=== PATIENT | male | born 1950 | race Caucasian/White ===

== ENCOUNTER → 2016-10-08 | Outpatient (CLI) | payer BC ==
[~2016-10-08] MED LIST: ALL300 PO; ASPEC81 PO; BNC/20125 PO; CETI10TA84 PO; DOCU100C31 PO; EPP3/2 IM; ERYTHROMYCIN OINT OPR; FLNIN NAE; GLC/500 PO; MULT-506 PO; RXC5 PO; SNK PO; TYLOTC500 PO
[2016-10-08 12:10] LABS: BASO % 0.6 %; BASO ABS # 0.06 K/uL (0-0.2); COMPLETE YES; EOS % 3.7 %; HEMATOCRIT 45.6 % (42-52); IG% 0.3 %; LYMPH % 22.3 %; MEAN CELL VOLUME 94.4 fL (80-100); MEAN CORPUSCULAR HEMOGLOBIN 32.3 pg (25-34); MEAN CORPUSCULAR HGB CONC 34.2 g/dl (32-36); MEAN PLATELET VOLUME 11.4 fL (7.4-10.4); MONO % 15.1 %; PLATELET COUNT 231 K/uL (130-400); RED BLOOD COUNT 4.83 M/uL (4.7-6.1)
[2016-10-08 12:27] LABS: ALKALINE PHOSPHATASE 75 U/L (45-117); ALT/SGPT 60 U/L (12-78); AST/SGOT 34 U/L (15-37); BLOOD UREA NITROGEN 15 mg/dl (7-18); BUN/CREATININE RATIO 15.1 (10-20); CALCIUM 9.5 mg/dl (8.5-10.1); CARBON DIOXIDE 31 mmol/L (21-32); CHLORIDE 103 mmol/L (98-107); CHOLESTEROL 135 mg/dl (0-200); CHOLESTEROL/HDL RATIO 4.8; GLUCOSE 183 mg/dl (70-99); HDL CHOLESTEROL 28 mg/dl; LDL CHOLESTEROL CALCULATED 70 mg/dl; POTASSIUM 4.1 mmol/L (3.5-5.1); SODIUM 139 mmol/L (136-145); TRIGLYCERIDES 183 mg/dl (0-150); VERY LOW DENSITY LIPOPROT CALC 37 mg/dl
[2016-10-08 12:28] LABS: ESTIMATED AVERAGE GLUCOSE 171 mg/dl; HA1C FLAG Normal (Normal)
[2016-10-08 13:51] LABS: RATIO 27.2 mcg/mg (0-30.0)
== END | disposition home or self-care (01) ==
LOC: C.LAB1850 10:22
PROVIDERS: ATTEND Internal Medicine Pulmonary Disease
DX: Z00.00 Encounter for general adult medical examination without abnormal findings (principal); I10 Essential (primary) hypertension; R73.9 Hyperglycemia, unspecified

== ENCOUNTER → 2017-06-30 | Outpatient (CLI) | payer BC | END | disposition home or self-care (01) | LOC: C.LAB1850 16:18 | PROVIDERS: ATTEND Physician Assistant Medical | DX: T14.8XXA Other injury of unspecified body region, initial encounter (principal); W57.XXXA Bitten or stung by nonvenomous insect and other nonvenomous arthropods, initial encounter ==

== ENCOUNTER → 2017-09-23 | Outpatient (CLI) | payer BC ==
[~2017-09-23] MED LIST changes: +ALLO300T2 PO; -ASPEC81 PO; +ASPI-320 PO; +ASPI81TA28 PO; +CHOL1TAB PO; +CLOT10TR2 MT; +DULA1INJ SC; +FLUT50SP45; +METF1000 PO; +PANT40TA PO
[2017-09-23 12:23] LABS: ALBUMIN 3.8 gm/dl (3.4-5.0); ALT/SGPT 37 U/L (12-78); AST/SGOT 26 U/L (15-37); BLOOD UREA NITROGEN 25 mg/dl (7-18); CALCIUM 9.1 mg/dl (8.5-10.1); CARBON DIOXIDE 30 mmol/L (21-32); CREATININE 1.06 mg/dl (0.60-1.40); GLUCOSE 104 mg/dl (70-99); POTASSIUM 3.7 mmol/L (3.5-5.1); SODIUM 139 mmol/L (136-145)
[2017-09-23 12:25] LABS: ALKALINE PHOSPHATASE 56 U/L (45-117); TOTAL PROTEIN 7.8 gm/dl (6.4-8.2)
[2017-09-23 12:36] LABS: HEMOGLOBIN A1C 5.7 % (4.5-5.6)
== END | disposition home or self-care (01) ==
LOC: C.LAB1850 11:00
PROVIDERS: ATTEND Internal Medicine Endocrinology, Diabetes & Metabolism
DX: I10 Essential (primary) hypertension (principal); M10.9 Gout, unspecified; E11.65 Type 2 diabetes mellitus with hyperglycemia; J30.9 Allergic rhinitis, unspecified

== ENCOUNTER → 2017-09-24 | Outpatient (CLI) | payer BC ==
[2017-09-24 16:41] LABS: MEAN PLATELET VOLUME 10.7 fL (7.4-10.4); PLATELET COUNT 237 K/uL (130-400)
[2017-09-24 17:01] LABS: HEMATOCRIT 41.8 % (42-52); HEMOGLOBIN 14.2 g/dL (14.0-18.0); MEAN CELL VOLUME 93.9 fL (80-100); MEAN CORPUSCULAR HEMOGLOBIN 31.9 pg (25-34); RED CELL DISTRIBUTION WIDTH CV 12.8 % (11.5-14.5); RED CELL DISTRIBUTION WIDTH SD 43.7 fL (36.4-46.3); WHITE BLOOD COUNT 9.46 K/uL (4.8-10.8)
[2017-09-24 17:04] LABS: BASO % 0.3 %; BASO ABS # 0.03 K/uL (0-0.2); EOS ABS # 0.47 K/uL (0-0.5); IG# 0.03 K/uL (0.00-0.02); LYMPH % 27.9 %; LYMPH ABS # 2.64 K/uL (1.2-3.4); MONO % 13.6 %; MONO ABS # 1.29 K/uL (0.11-0.59); NEUT % 52.9 %
== END | disposition home or self-care (01) ==
LOC: C.LAB1850 15:48
PROVIDERS: ATTEND Physician Assistant Medical
DX: K92.0 Hematemesis (principal)

== ENCOUNTER 2017-10-01 16:52 | Emergency (ER) | payer BC ==
[~2017-10-01] VITALS: Ht 170.2 cm; Wt 97.7 kg
[2017-10-01 16:57] VITALS: TEMP 36.8; Ht 170.2 cm; Wt 97.7 kg
[2017-10-01 18:13] LABS: BASO % 0.4 %; BASO ABS # 0.04 K/uL (0-0.2); EOS % 3.2 %; EOS ABS # 0.29 K/uL (0-0.5); HEMATOCRIT 44.7 % (42-52); HEMOGLOBIN 15.5 g/dL (14.0-18.0); IG# 0.04 K/uL (0.00-0.02); LYMPH % 23.5 %; MEAN CELL VOLUME 92.9 fL (80-100); MEAN CORPUSCULAR HEMOGLOBIN 32.2 pg (25-34); MEAN CORPUSCULAR HGB CONC 34.7 g/dl (32-36); MEAN PLATELET VOLUME 10.4 fL (7.4-10.4); MONO % 16.3 %; MONO ABS # 1.46 K/uL (0.11-0.59); NEUT % 56.2 %; PLATELET COUNT 248 K/uL (130-400); RED CELL DISTRIBUTION WIDTH CV 12.8 % (11.5-14.5); RED CELL DISTRIBUTION WIDTH SD 43.6 fL (36.4-46.3); WHITE BLOOD COUNT 8.93 K/uL (4.8-10.8)
[2017-10-01 18:35] LABS: ALBUMIN 4.3 gm/dl (3.4-5.0); CALCIUM 9.3 mg/dl (8.5-10.1); CREATININE 1.21 mg/dl (0.60-1.40); POTASSIUM 3.6 mmol/L (3.5-5.1)
[2017-10-01 18:36] LABS: PTT PATIENT 28.9 SECONDS (21.0-31.0)
[2017-10-01 18:38] LABS: TOTAL PROTEIN 8.7 gm/dl (6.4-8.2)
[2017-10-01] MEDS ORDERED: LIDOCAINE/EPINEPHRINE 1% 20 ML VIAL INFIL STA (19:29)
[2017-10-01] MEDS ORDERED: SILVER NITR/POTASSIUM NITRATE APPLICATOR ONE (21:08)
--- NOTE | 2017-10-01 22:02 | EMERGENCY ROOM VISIT NOTE ---
History First contact with patient: 17:01 Chief Complaint: BLEEDING Stated Complaint: GUMS BLEEDING Nursing Triage Summary: Patient presents ambulatory to triage with c/o gums have been bleeding since 09/30/17 around noon Aspirin 81mg daily - states he did not take this today Denies other injury History of Present Illness The patient is a 67 year old male who presents to the Emergency Room via private vehicle accompanied by female with complaints of "gums bleeding". The patient states that yesterday around noon time he began with spontaneous bleeding from the gumline at the space between the right second and third molar. He states that he did have popcorn 2 nights ago and then began with the bleeding around noontime the next day and does not believe that this is the cause. He denies any pain. He takes 81 mg aspirin daily but did not take today because the bleeding. No other blood thinners. He denies any other underlying bleeding disorder. The only other important note he states is that last week he took an NSAID for his knee and vomited blood. He has an EGD scheduled for Thursday. He states that he was seen by his dentist yesterday who evaluated his urine he states that he also had a CBC done last week and it was normal. He again denies any trauma or injury. He has tried rinsing the mouth with cold water without relief. Review of Systems A complete 6-point Review of Systems was discussed with the patient, with pertinent positives and negatives listed in the History of Present Illness. All remaining Review of Systems questions can be considered negative unless otherwise specified. Past Medical/Surgical History Surgical Problems: (1) Post-operative state Social History Smoking Status: Former Smoker Marital Status: Housing Status: lives with significant other Current/Historical Medications Scheduled Allopurinol (Zyloprim), 300 MG PO DAILY Aspirin (Aspirin Ec), 81 MG PO DAILY Cetirizine (Zyrtec), 10 MG PO HS Cholecalciferol (Vitamin D-3), 800 UNITS PO DAILY Dulaglutide (Trulicity), 0.75 MG SC WK Epinephrine (Epipen), 0.3 MG IM UD Fluticasone Propionate (Nasal) (Allergy Nasal [place] 24 Ho), 1 SPRAY NA BID Metformin Hcl (Glucophage), 1,000 MG PO BID Multivitamin (Multivitamin), 1 TAB PO QAM Olmesartan/Hctz (Benicar Hct 20/12.5), 1 TAB PO QAM Pantoprazole Sodium (Protonix), 40 MG PO DAILY Scheduled PRN Clotrimazole (Mycelex), 10 MG MT for SORE THROAT Physical Exam Vital Signs Date Time Temp Pulse Resp B/P (MAP) Pulse Ox O2 Delivery O2 Flow Rate FiO2 10/01/17 22:11 75 18 174/98 98 10/01/17 20:51 69 18 179/106 97 Room Air 10/01/17 18:36 69 18 159/97 98 Room Air 10/01/17 16:57 36.8 76 16 186/102 96 Room Air Physical Exam VITAL SIGNS - Vital signs and nursing notes were reviewed. Stable. Hypertensive. GENERAL -67-year-old male appearing his stated age who is in no acute distress. Communicates well with provider and answers questions appropriately. SKIN - Without rashes. No meningeal or petechial rash. HEAD - NC/AT. No lo signs or raccoon's eyes. EYES - PERRL with EOMI bilaterally. Sclera anicteric. Palpebral conjunctiva pink and moist with no injection noted. No hyphema. EARS - No deformities of external structures noted on gross examination bilaterally. No hemotympanum. External auditory canals without discharge or otorrhea. Tympanic membranes pearly velez without retraction or bulging. No fluid or purulent material visualized behind the TM. Handle of malleus, umbo, cone of light, pars tensa/flaccid all easily visualized. NOSE - Midline and without cyanosis. No epistaxis or purulent drainage noted. Septum midline without deviation or septal hematoma noted. MOUTH/OROPHARYNX - Without perioral cyanosis. Buccal mucosa pink and moist and without leukoplakia. Tongue midline with equal elevation of palate bilaterally. No tonsillar hypertrophy, erythema, or exudates noted. Between the second and third molar of the posterior inferior right dentition there is a small trickle of blood. No hemorrhage. No evidence of trauma. Fair dentition noted. Medical Decision & Procedures Laboratory Results 10/01/17 17:55 Red Blood Count 4.81, Mean Corpuscular Volume 92.9, Mean Corpuscular Hemoglobin 32.2, Mean Corpuscular Hemoglobin Concent 34.7, Mean Platelet Volume 10.4, Neutrophils (%) (Auto) 56.2, Lymphocytes (%) (Auto) 23.5, Monocytes (%) (Auto) 16.3, Eosinophils (%) (Auto) 3.2, Basophils (%) (Auto) 0.4, Neutrophils # (Auto ) 5.00, Lymphocytes # (Auto) 2.10, Monocytes # (Auto) 1.46, Eosinophils # (Auto ) 0.29, Basophils # (Auto) 0.04 10/01/17 17:55 Test 10/01/17 17:55 White Blood Count 8.93 K/uL (4.8-10.8) Red Blood Count 4.81 M/uL (4.7-6.1) Hemoglobin 15.5 g/dL (14.0-18.0) Hematocrit 44.7 % (42-52) Mean Corpuscular Volume 92.9 fL (80-100) Mean Corpuscular Hemoglobin 32.2 pg (25-34) Mean Corpuscular Hemoglobin Concent 34.7 g/dl (32-36) Platelet Count 248 K/uL (130-400) Mean Platelet Volume 10.4 fL (7.4-10.4) Neutrophils (%) (Auto) 56.2 % Lymphocytes (%) (Auto) 23.5 % Monocytes (%) (Auto) 16.3 % Eosinophils (%) (Auto) 3.2 % Basophils (%) (Auto) 0.4 % Neutrophils # (Auto) 5.00 K/uL (1.4-6.5) Lymphocytes # (Auto) 2.10 K/uL (1.2-3.4) Monocytes # (Auto) 1.46 K/uL (0.11-0.59) Eosinophils # (Auto) 0.29 K/uL (0-0.5) Basophils # (Auto) 0.04 K/uL (0-0.2) RDW Standard Deviation 43.6 fL (36.4-46.3) RDW Coefficient of Variation 12.8 % (11.5-14.5) Immature Granulocyte % (Auto) 0.4 % Immature Granulocyte # (Auto) 0.04 K/uL (0.00-0.02) Prothrombin Time 10.8 SECONDS (9.0-12.0) Prothromb Time International Ratio 1.0 (0.9-1.1) Activated Partial Thromboplast Time 28.9 SECONDS (21.0-31.0) Partial Thromboplastin Ratio 1.1 Anion Gap 3.0 mmol/L (3-11) Est Creatinine Clear Calc Drug Dose 64.2 ml/min Estimated GFR () 70.4 Estimated GFR (Non- 60.7 BUN/Creatinine Ratio 14.3 (10-20) Calcium Level 9.3 mg/dl (8.5-10.1) Total Bilirubin 0.8 mg/dl (0.2-1) Aspartate Amino Transf (AST/SGOT) 26 U/L (15-37) Alanine Aminotransferase (ALT/SGPT) 39 U/L (12-78) Alkaline Phosphatase 66 U/L (45-117) Total Protein 8.7 gm/dl (6.4-8.2) Albumin 4.3 gm/dl (3.4-5.0) Globulin 4.4 gm/dl (2.5-4.0) Albumin/Globulin Ratio 1.0 (0.9-2) Medical Decision Patient was seen and evaluated as above in room D3. Review was performed of nursing notes and vital signs. After obtaining a thorough history and physical examination the above work up was performed. I did elect to obtain baseline labs because of his presentation. No underlying normality with the CBC, coags or metabolic panel that is emergent. I did attempt cold water rinses, and teabags placed in the region. I then discussed this with the attending physician and subsequently spoke with the on-call oral maxillofacial surgeon, Dr. Hernandez, and it was recommended that I infiltrate the region with 1% lidocaine with epinephrine, packed the region with gauze for 10 minutes, and apply Surgicel in that order in case of persistent bleeding. He requested that I call him back if this did not achieve hemostasis. I then obtain consent, and infiltrated 4 cc of 1% buffered lidocaine with epinephrine into the gumline. This did help slow the bleeding some but it persisted. I then packed the region with gauze. He was observed for 15 minutes. It persisted. I then remove the gauze and placed a an entire layer of Surgicel around this and packed the region. He was then observed for 20 minutes. This persisted. I then called the oral maxillofacial surgeon, Dr. Hernandez again and he came to evaluate the patient. He was able to adequately achieve hemostasis. Patient is to call his office tomorrow shortly after 8 AM to inform him upon his status. Patient was observed here for greater than half hour after Dr. Hernandez was able to achieve hemostasis and there was no rebleed. Patient appears stable for outpatient management. He was educated upon worrisome symptoms which to return. He also was informed that he has elevated blood pressure here and is to follow up with family doctor. The patient was educated upon management , had questions answered prior to discharge, and was discharged home in good condition. Case was discussed with the attending physician. I attest that I have personally reviewed the patient medication list. I attest that I have reviewed the patient's blood pressure and it was found to be elevated, he is to follow up with family doctor. In the evaluation and treatment of this patient the following differential diagnoses were entertained: dental trauma, malignancy, bleeding disorder, amoung others. Impression Primary Impression: Gums, bleeding Departure Information Dispostion Home / Self-Care Condition GOOD Referrals Jeremiah Camacho M.D. (PCP) Ray Hernandez D.D.S. Patient Instructions My [facility] Additional Instructions You were seen in the emergency department for gum bleeding. At this time I recommend follow-up with Dr. Hernandez by calling his office tomorrow morning at 8 AM and if it is still bleeding he wants to see you. Please return with any new/concerning symptoms.
[2017-10-01 22:11] VITALS: BP 174/98; PULSE 75; O2SAT 98
--- NOTE | 2017-10-01 23:06 | CONSULTATION REPORT ---
DATE OF CONSULTATION: 10/01/2017 CHIEF COMPLAINT: Bleeding from the gums. HISTORY OF PRESENT ILLNESS: Mr. Castaneda is a 67-year-old man with about a day and a half history of spontaneous bleeding from the right gum. He has carefully reviewed all the foods he has eaten and did note that he had some popcorn about the night prior to the starting of this bleeding but cannot directly relate any oral trauma. He has not had any dental or oral surgical procedures and in general, he has been in good health, but it is interesting to note that he has upper GI scheduled this coming week because he did have one episode of some emesis with mild blood within it. I will defer you to his ER history and physical, but he is in generally good health and he has been on an 81 mg aspirin and meloxicam up until recently. These were recently stopped in preparation for his upper GI. His initial evaluation here in the ER was completed and it included labs. He has a normal platelet count and a normal coag profile, a normal white count and a normal hemoglobin. On examination, he is at the bedside with no acute distress but is actively spitting out blood into a cup. There is no swelling in his neck. There is no facial ecchymosis. No signs of trauma. Dentition is in good repair, but there is active moderately brisk bleeding coming from the gum tissue in the area between the mandibular right first and second molars (#30 and 31). I gave him some additional 1% lidocaine with epinephrine as a local infiltration right in that area which slowed the bleeding to a very slow ooze and then I used silver nitrate to further cauterize that with a resulting good hemostasis. I personally observed it for 5-10 minutes with no increased bleeding and discussed with the ER staff observing him for a bit longer and then discharging him to home. If there is no resumption of the bleeding, I will ask him to call me in the office in the morning with the status report and then we will plan appropriate followup as needed from there.
== END 2017-10-01 22:08 | disposition home or self-care (01) ==
LOC: C.EDB 16:53 → C.EDD 22:08
DX: K06.8 Other specified disorders of gingiva and edentulous alveolar ridge (principal); Z87.891 Personal history of nicotine dependence; Z79.82 Long term (current) use of aspirin; Z79.84 Long term (current) use of oral hypoglycemic drugs; Z79.899 Other long term (current) drug therapy

== ENCOUNTER → 2017-10-06 | Day surgery (SDC) | payer BC ==
[2017-10-01 10:09] VITALS: Ht 170.2 cm; Wt 95.5 kg
[~2017-10-06] VITALS: Ht 170.2 cm; Wt 95.5 kg
[~2017-10-06] MED LIST changes: -ALL300 PO; -ASPI-320 PO; -DOCU100C31 PO; -ERYTHROMYCIN OINT OPR; -FLNIN NAE; -GLC/500 PO; +LIDOCAINE HCL 2% 2 ML VIAL (20MG/ML) ONE; +PROPOFOL IV EMULSION 10 MG/ML 20 ML VIAL ONE; -RXC5 PO; -SNK PO; -TYLOTC500 PO
--- NOTE | 2017-10-06 10:04 | Endo History and Physical ---
History & Physical Date of Service: October 06, 2017. Chief Complaint: Hematemesis Referring Physician: Dr. Jeremiah Camacho History of Present Illness 67 yo CM who presents for EGD secondary to hematemesis. Past Surgical History Hx Cardiac Surgery: No Hx Internal Defibrillator: No Hx Pacemaker: No Hx Abdominal Surgery: No Hx of Implantable Prosthesis: No Hx Post-Op Nausea and Vomiting: No Hx Cancer Surgery: No Hx Thoracic Surgery: No Hx Orthopedic: Yes (R KNEE SCOPE 1992,RT TKA JUL 2009,R THR 2010, L THR 2015) Hx Urinary Tract Surgery: Yes (SURGERY ON TESTICLE) Family History IBD Social History Smoking Status: Former Smoker Hx Substance Use: No Hx Alcohol Use: Yes (RARELY HAS 1 BEER MONTHY) Allergies Coded Allergies: Bacitracin (Verified Allergy, Mild, SWELLING, REDNESS, 10/01/17) Neomycin (Verified Allergy, Mild, SWELLING, REDNESS, 10/01/17) Polymyxin B (Verified Allergy, Mild, SWELLING, REDNESS, 10/01/17) BEE STING (Verified Allergy, Unknown, HIVES, 10/01/17) Celecoxib (Verified Allergy, Unknown, RASH, 10/01/17) Cephalosporins (Verified Allergy, Unknown, ITCHINESS,RASH, 10/01/17) Sulfa Drugs (Verified Adverse Reaction, Unknown, BLOODY DIARRHEA, 10/01/17) Current Medications Reported Home Medications Medications Dose Route/Sig Max Daily Dose Days Date Category Zyloprim (Allopurinol) 300 Mg Tab 300 Mg PO DAILY 30 10/01/17 Reported Vitamin D-3 (Cholecalciferol) 400 Unit Tab 800 Units PO DAILY 10/01/17 Reported Trulicity (Dulaglutide) 0.75 Mg/0.5 Ml Inj 0.75 Mg SC WK 10/01/17 Reported Protonix (Pantoprazole Sodium) 40 Mg Tab 40 Mg PO DAILY 30 10/01/17 Reported Allergy Nasal [place] 24 Ho (Fluticasone Propionate (Nasal)) 50 Mcg/Act Spr 1 [place] NA BID 10/01/17 Reported Mycelex (Clotrimazole) 10 Mg Tro 10 Mg MT PRN 10/01/17 Reported Aspirin Ec (Aspirin) 81 Mg Tab 81 Mg PO DAILY 10/01/17 Reported Glucophage (Metformin Hcl) 1,000 Mg Tab 1,000 Mg PO BID 10/01/17 Reported Multivitamin (Multivitamins) Tab 1 Tab PO QAM 9/8/16 Reported Epipen (Epinephrine) 0.3 Mg/0.3 Ml Inj 0.3 Mg IM UD 02/14/16 Reported Zyrtec (Cetirizine HCl) 10 Mg Tab 10 Mg PO HS 02/14/16 Reported Benicar Hct 20/12.5 (Olmesartan/HCTZ) Tab 1 Tab PO QAM 02/14/16 Reported Vital Signs Weight (Kilograms): 95.45 Height (Feet): 5 Height (Inches): 7 Date Time Temp Pulse Resp B/P (MAP) Pulse Ox O2 Delivery O2 Flow Rate FiO2 10/06/17 09:17 36.9 68 18 158/91 (113) 98 Room Air Physical Exam General Appearance: WD/WN, no apparent distress Respiratory/Chest: Auscultation: breath sounds normal Cardiovascular: Heart Auscultation: RRR Abdomen: Bowel Sounds: normal Inspection & Palpation: soft, non-distended, no tenderness, guarding & rebound Assessment and Plan Assessment: 67 yo CM who presents for EGD secondary to hematemesis. Plan: Proceed with EGD.
--- NOTE | 2017-10-06 10:50 | Discharge Instructions ---
Endoscopy Patient Instructions Date / Procedure(s) Performed October 06, 2017. EGD Allergy Information Coded Allergies: Bacitracin (Verified Allergy, Mild, SWELLING, REDNESS, 10/01/17) Neomycin (Verified Allergy, Mild, SWELLING, REDNESS, 10/01/17) Polymyxin B (Verified Allergy, Mild, SWELLING, REDNESS, 10/01/17) BEE STING (Verified Allergy, Unknown, HIVES, 10/01/17) Celecoxib (Verified Allergy, Unknown, RASH, 10/01/17) Cephalosporins (Verified Allergy, Unknown, ITCHINESS,RASH, 10/01/17) Sulfa Drugs (Verified Adverse Reaction, Unknown, BLOODY DIARRHEA, 10/01/17) Discharge Date / Findings October 06, 2017. Gastritis s/p biopsies Biopsies of distal esophagus Medication Instructions Stopped Medication(s): Patient was told to stop aspirin. OK to resume all medications today as prescribed Reported Home Medications Medications Dose Route/Sig Max Daily Dose Days Date Category Zyloprim (Allopurinol) 300 Mg Tab 300 Mg PO DAILY 30 10/01/17 Reported Vitamin D-3 (Cholecalciferol) 400 Unit Tab 800 Units PO DAILY 10/01/17 Reported Trulicity (Dulaglutide) 0.75 Mg/0.5 Ml Inj 0.75 Mg SC WK 10/01/17 Reported Protonix (Pantoprazole Sodium) 40 Mg Tab 40 Mg PO DAILY 30 10/01/17 Reported Allergy Nasal [place] 24 Ho (Fluticasone Propionate (Nasal)) 50 Mcg/Act Spr 1 [place] NA BID 10/01/17 Reported Mycelex (Clotrimazole) 10 Mg Tro 10 Mg MT PRN 10/01/17 Reported Aspirin Ec (Aspirin) 81 Mg Tab 81 Mg PO DAILY 10/01/17 Reported Glucophage (Metformin Hcl) 1,000 Mg Tab 1,000 Mg PO BID 10/01/17 Reported Multivitamin (Multivitamins) Tab 1 Tab PO QAM 02/14/16 Reported Epipen (Epinephrine) 0.3 Mg/0.3 Ml Inj 0.3 Mg IM UD 02/14/16 Reported Zyrtec (Cetirizine HCl) 10 Mg Tab 10 Mg PO HS 02/14/16 Reported Benicar Hct 20/12.5 (Olmesartan/HCTZ) Tab 1 Tab PO QAM 02/14/16 Reported Provider Instructions Activity Restrictions - No exercising or heavy lifting for 24 hours. - Do not drink alcohol the day of the procedure. - Do not drive a car or operate machinery until the day after the procedure. - Do not make any important decisions or sign important papers in 24 hours after the procedure. Following Day: - Return to full activity which may include returning to work/school. Diet Start your diet with liquids and light foods (jello, soup, juice, toast). Then eat your usual diet if not nauseated. Treatment For Common After Affects For mild abdominal pain, bloating, or excessive gas: - Rest - Eat lightly - Lie on right side Follow-Up Information Follow-up with Dr. Jeremiah Camacho as scheduled Anesthesia Information What You Should Know You have had a procedure that required some medicine to reduce anxiety and discomfort. This treatment is called moderate sedation. After receiving the treatment, you may be sleepy, but you will be able to breathe on your own. The effects of the treatment may last for several hours. Follow these instructions along with Activity/Diet recommendations noted above: * Do NOT do anything where dizziness or clumsiness would be dangerous. * Rest quietly at home today, then you can be up and about tomorrow. * Have a responsible person stay with you the rest of today. * You may have had an I.V. today. If so, you may take the dressing off later today. Recommendations Call your doctor if: * Trouble breathing * Continuous vomiting for more than 24 hours * Temperature above 101 degrees * Severe abdominal pain or bloating * Pain not relieved by pain medicine ordered * There is increased drainage or redness from any incision * A large amount of rectal bleeding greater than 2-3 tablespoons. (If you had a polyp/s removed or have hemorrhoids, a small amount of blood - from the rectum is to be expected.) * You have any unanswered questions or concerns. IN THE EVENT OF A SERIOUS EMERGENCY, GO TO THE NEAREST EMERGENCY ROOM Your discharge instructions were prepared by provider Elias Dobson. Patient Instructions Signature Page Hai Castaneda Patient (or Guardian) Signature/Date: I have read and understand the instructions given to me by my caregivers. Caregiver/RN/Doctor Signature/Date: The above-named patient and/or guardian has received patient instructions on this date. + Original Patient Signature Page (only) stays with chart. Please make copy for patient.
[2017-10-06 10:52] VITALS: BP 141/97; PULSE 70; O2SAT 97
--- NOTE | 2017-10-06 10:55 | Anesthesiology Progress Note ---
Anesthesia Post Op Note Date & Time October 06, 2017 at 10:55 Vital Signs Pain Intensity: 0 Vital Signs Past 12 Hours Date Time Temp Pulse Resp B/P (MAP) Pulse Ox O2 Delivery O2 Flow Rate FiO2 10/06/17 10:42 69 18 158/95 (116) 97 Room Air 10/06/17 10:32 76 18 146/89 (108) 94 Room Air 10/06/17 09:17 36.9 68 18 158/91 (113) 98 Room Air Notes Mental Status: alert / awake / arousable, participated in evaluation Pt Amnestic to Procedure: Yes Nausea / Vomiting: adequately controlled Pain: adequately controlled Airway Patency, RR, SpO2: stable & adequate BP & HR: stable & adequate Hydration State: stable & adequate Anesthetic Complications: no major complications apparent
--- NOTE | 2017-10-06 11:03 | GI REPORT ---
Patient Name: Hai Castaneda Procedure Date: 10/06/2017 10:06 AM Date of : 1950 Admit Type: Outpatient Age: 67 Gender: Male Attending MD: Elias Dobson DO Procedure: Upper GI endoscopy Providers: Elias Dobson DO Referring MD: Jeremiah Haile Indications: Hematemesis Medicines: Monitored Anesthesia Care Complications: No immediate complications. Estimated Blood Loss: Estimated blood loss: none. Procedure: Pre-Anesthesia Assessment: - Prior to the procedure, a History and Physical was performed, and patient medications and allergies were reviewed. The patient's tolerance of previous anesthesia was also reviewed. The risks and benefits of the procedure and the sedation options and risks were discussed with the patient. All questions were answered, and informed consent was obtained. Prior Anticoagulants: The patient has taken aspirin, last dose was 5 days prior to procedure. ASA Grade Assessment: III - A patient with severe systemic disease. After reviewing the risks and benefits, the patient was deemed in satisfactory condition to undergo the procedure. After obtaining informed consent, the endoscope was passed under direct vision. Throughout the procedure, the patient's blood pressure, pulse, and oxygen saturations were monitored continuously. The scope was introduced through the mouth, and advanced to the second part of duodenum. The upper GI endoscopy was accomplished without difficulty. The patient tolerated the procedure well. Findings: The Z-line was irregular. Biopsies were taken with a cold forceps for histology. Localized mild inflammation characterized by erythema was found in the gastric antrum. Biopsies were taken with a cold forceps for histology. The examined duodenum was normal. Impression: - Z-line irregular. Biopsied. - Gastritis. Biopsied. - Normal examined duodenum. Recommendation: - Resume previous diet. - Continue present medications. - Await pathology results. - Return to primary care physician as previously scheduled. Elias Dobson DO 10/06/2017 11:03:03 AM This report has been signed electronically. Note Initiated On: 10/06/2017 10:06 AM Number of Addenda: 0 I attest to the content of the Intraoperative Record and orders documented therein, exceptions below {[id number]}
== END | disposition home or self-care (01) ==
LOC: C.GI 08:45
PROVIDERS: ATTEND Internal Medicine
DX: K92.0 Hematemesis (principal); K21.9 Gastro-esophageal reflux disease without esophagitis; M19.90 Unspecified osteoarthritis, unspecified site; E11.9 Type 2 diabetes mellitus without complications; K29.70 Gastritis, unspecified, without bleeding; Z96.651 Presence of right artificial knee joint; Z87.891 Personal history of nicotine dependence; Z88.1 Allergy status to other antibiotic agents; Z88.2 Allergy status to sulfonamides; Z79.82 Long term (current) use of aspirin; Z79.84 Long term (current) use of oral hypoglycemic drugs; Z96.643 Presence of artificial hip joint, bilateral